=== PATIENT | male | born 1975 | race Caucasian/White ===

== ENCOUNTER 2020-06-26 20:13 | Emergency (ER) | payer OTHER ==
[2020-06-26 21:05] LABS: HEMOGLOBIN 15.8 gm/dl (14.0-17.5); RED BLOOD COUNT 4.97 M/UL (4.20-5.50); WHITE BLOOD COUNT 10.3 K/UL (4.5-11.0)
[2020-06-26 21:29] LABS: BUN/CREATININE RATIO 18 (0-10)
== END 2020-06-27 00:10 | disposition home or self-care (01) ==
LOC: ER1 20:13 → CDU 21:54 → ER1 06-27 00:10
PROVIDERS: Family Medicine
DX: T62.0X4A Toxic effect of ingested mushrooms, undetermined, initial encounter (principal); F17.210 Nicotine dependence, cigarettes, uncomplicated
CPT/HCPCS: 80053; 80307; 81001; 85025; 93005; 99284; G0480; J7030

== ENCOUNTER → 2020-10-15 | Outpatient (CLI) | payer OTHER | LOC: LAB 19:23 | DX: Z53.9 Procedure and treatment not carried out, unspecified reason (principal) | CPT/HCPCS: 36415 ==